=== PATIENT | male | born 1950 | race Caucasian/White ===

== ENCOUNTER 2017-04-08 08:08 | Day surgery (SDC) | payer MEDICARE, BC ==
--- OUTSIDE RECORDS SUMMARY | 2017-04-08 08:12 | XMS REPORT | Continuity of Care Document ---
:1950 Author Organization [facility] ([facility]) Address [address] [place] [address] Phone [phone] Care Team Providers Name Role Phone [place] Primary Care Provider [phone] Source Comments This disclosure is being made pursuant to the Care Everywhere program, applicable federal and state laws, and may not contain all informaitonavailable regarding this patient.[facility] ([facility]) Active Allergies and Adverse Reactions Allergen Noted Date Severity Reactions Comments Codeine 05/11/2011 Nausea & Vomiting Current Medications Prescription Sig. Disp. Refills Start Date End Date Status gemfibrozil 600 mg tablet Take 600 mg by Active mouth 2 times daily. enalapril-hydrochlorthiazi Take 1 Tab by Active de 10-25 mg per tablet mouth daily. doxepin 10 mg capsule Take 20 mg by Active mouth at bedtime. aspirin 81 mg tablet Take 81 mg by Active mouth daily. naproxen sodium 220 mg Take 220 mg by Active tablet mouth 2 times daily as needed. diphenhydrAMINE (BENADRYL) Take 25 mg by Active 25 mg capsule mouth at bedtime as needed. ROPINIROLE 0.25 mg tablet daily 11 08/05/2015 Active loteprednol (LOTEMAX) 0.5 Instill 1 Drop 5 mL 11 02/16/2017 Active % ophthalmic suspension onto both eyes every morning. 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, both eyes ([facility] right 03/28/13, left 08/15/13) 07/2013 Pseudophakia, both eyes 11/23/2011 Fuchs' corneal dystrophy 11/21/2011 Refractive error 11/21/2011 Presbyopia 11/21/2011 Hypertension 05/11/2011 Thyroid disorder 05/11/2011 Depression 05/11/2011 Resolved Problems Problem Noted Date Resolved Date Corneal edema 02/22/2013 11/22/2013 Most Recent Encounters Date Type Specialty Providers Description 02/16/2017 Orders Only Ophthalmology - Aimee, Dx: Fuchs' corneal Specialty Dillon Juarez MD dystrophy (Primary Dx) Social History Tobacco Use Types Packs/Day Years Used Date Former Smoker Cigarettes 2 40 Quit: 04/22/2009 Smokeless Tobacco: Never Used Alcohol Use Drinks/Week oz/Week Comments No Last Filed Vital Signs Vital Sign Reading Time Taken Blood Pressure 156/87 08/15/2013 12:00 PM CDT Pulse 73 08/15/2013 8:03 AM CDT Temperature 36.4 C (97.5 F) 08/15/2013 11:15 AM CDT Respiratory Rate 20 08/15/2013 8:03 AM CDT Height 1.727 m (5' 7.99") 06/22/2013 12:47 PM CDT Weight 100.5 kg (221 lb 9 oz) 08/15/2013 8:03 AM CDT Body Mass Index 33.7 08/15/2013 8:03 AM CDT Oxygen Saturation 97% 08/15/2013 12:00 PM CDT Plan of Care Health Maintenance Due Date Last Done Comments HCV Screening 1950 Hepatitis B Vaccine (1 of 3 - Primary Series) 1950 Tdap Vaccine 1962 Lipid Disorder Screening 1969 Td Vaccine 1969 Colonoscopy 12/15/2001 Prostate Cancer Screening 2001 Zoster Vaccine 2011 Influenza Vaccine: Seasonal (#1) 06/21/2016 Pneumococcal Vaccine (1 of 2 - PCV13) 2016 Results from Last 3 Months Not on file
--- OUTSIDE RECORDS SUMMARY | 2017-04-08 08:12 | XMS REPORT | Continuity of Care Document ---
:1950 Author Organization [facility] [place] [address] Care Team Providers Name Role Phone Unavailable Primary Care Provider Unavailable Source Comments This disclosure is being made pursuant to the [employer] program and maynot contain all information available regarding this patient.[facility] Active Allergies and Adverse Reactions Not on File Current Medications Be aware that medications may not be up to date as of this document. Alwaysverify current medications with the patient. Not on file Active Problems Not on file Social History Tobacco Use Types Packs/Day Years Used Date Never Assessed Plan of Care Health Maintenance Due Date Last Done Comments Retired-Pertussis Vaccine Adult 1970 Retired-Tetanus Vaccine Adult 1970 Colonoscopy 2001 Well Adult Visit 2001 Zoster Vaccine 60+ 2011 Retired-INFLUENZA VACCINE 07/22/2015 Results from Last 3 Months Not on file
--- NOTE | 2017-04-08 08:47 | OR ---
Anesthesia Pre Procedure Eval Date of Service: 04/08/17 Pre Procedure Evaluation: Last Vital Signs Temp 36.5 C 04/08/17 08:15 Pulse 74 04/08/17 08:15 Resp 18 04/08/17 08:15 BP 150/68 04/08/17 08:15 Pulse Ox 100 04/08/17 08:15 Anesthesia Pre Procedure Evaluation DATE: 04/08/2017. TIME: 0840. INDICATIONS: Low back pain and left leg radiculopathy. PAST MEDICAL HISTORY: Is a 66-year-old male with a history of low back pain and left leg radiculopathy. This is his first epidural steroid injection. EXAM: MRI report and films were reviewed. Pain is 0/10 on pain scale at present. ASSESSMENT OF MEDICAL STATUS: O.K. to proceed with JAMAL. PLANNED PROCEDURE: Fluoroscopic guided epidural steroid injection L4-5. Home Medications: HOME MEDICATIONS Doxepin HCl [Sinequan] 10 - 20 mg PO HS PRN 07/20/16 [Last Taken Unknown] Enalapril/Hydrochlorothiazide [Enalapril-Hctz 10-25 mg Tablet] 1 each PO DAILY 07/20/16 [Last Taken 04/08/17] Gemfibrozil [Lopid] 600 mg PO BID 07/20/16 [Last Taken 04/08/17] Loteprednol Etabonate [Lotemax] 1 drop OP DAILY 07/20/16 [Last Taken Unknown] rOPINIRole HCL [Requip] 0.25 mg PO HS 07/20/16 [Last Taken Unknown] Aspirin [Aspirin Chewable] 81 mg PO DAILY 04/07/17 [Last Taken Unknown] Fluticasone Propionate [Flonase] 2 spray NS DAILY PRN 04/07/17 [Last Taken Unknown] Naproxen [Naprosyn] 500 mg PO BID 04/07/17 [Last Taken Unknown]
[2017-04-08] MEDS ORDERED: DEXAMETHASONE SOD PHOSPHATE 10 MG/ML VIAL IJ ONE (09:03)
[2017-04-08] MEDS ORDERED: LIDOCAINE HCL/PF 5 ML VIAL IJ ONE (09:03)
[2017-04-08] MEDS ORDERED: IOPAMIDOL 20 ML VIAL IJ ONE ×2 (09:04)
--- NOTE | 2017-04-08 09:11 | OR ---
Anesthesia Procedure Note - Anesthesia Procedure Note Date of Service: 04/08/17 Narrative: Vital Signs - Last Taken Temp 36.5 C 04/08/17 08:15 Pulse 74 04/08/17 08:15 Resp 18 04/08/17 08:15 BP 150/68 04/08/17 08:15 Pulse Ox 100 04/08/17 08:15 04/08/17 09:10 ANESTHESIA PROCEDURE NOTE Date of Procedure: 04/08/2017. Time of procedure: 0900. Performed by: Edwin Rosas CRNA Flag Signalman: None. Preprocedure diagnosis: Low back pain and left leg radiculopathy. Post procedure diagnosis: Same. Procedure: Fluoroscopic guided epidural Steroid Injection L4-5. Indications: This is a 66-year-old male with a history of low back pain and left leg radiculopathy. Potential risks and benefits of the procedure were discussed with the patient and consent was obtained. Findings: See below. Details of the procedure: The patient was brought back to operating room #2. The patient was then placed in the prone position to comfort. DuraPrep was applied to the patient's back. Patient was then draped in sterile fashion. Lidocaine 1% was infiltrated to the skin and subcutaneous tissues at the level of the L4-5 interspace using fluoroscopic guidance. The epidural space was identified using a 20-gauge Tuohy needle with [id number] technique. 1 mL of Isovue contrast was then injected after negative aspiration for blood and CSF. The epidural space was outlined in the AP and lateral views. Preservative free Decadron 10 mg + 5 mL of 1% preservative-free lidocaine was administered to the epidural space after negative aspiration for blood and CSF. The Tuohy needle was removed intact. A Band-Aid was applied to the patient's back. The patient was then placed in a supine position for 5 minutes before returning to the ambulatory surgical unit. Total fluoroscopy time: 13.4 seconds. Cumulative dose: 5.25 mGy. EBL: Minimal. Fluids: N/A. Specimen: N/A. Post procedure condition: The patient tolerated the procedure well. No complications were noted. No motor weaknesses or paresthesias were noted upon discharge. Thank you for this consultation. Edwin Rosas CRNA
[2017-04-08 09:43] VITALS: BP 109/68
== END 2017-04-08 08:09 | disposition home or self-care (01) ==
LOC: AMB 08:08
PROVIDERS: ATTEND Internal Medicine
PROC: 3E0S3BZ Introduction of Anesthetic Agent into Epidural Space, Percutaneous Approach (ICD-10-PCS; 2017-04-08)
PROC: 3E0S33Z Introduction of Anti-inflammatory into Epidural Space, Percutaneous Approach (ICD-10-PCS; principal; 2017-04-08 09:15)
DX: M54.5 Low back pain (principal); Z68.32 Body mass index [BMI] 32.0-32.9, adult